=== PATIENT | male | born 1995 | race Asian ===

== ENCOUNTER → 2023-08-01 | Outpatient (CLI) | payer OTHER | END | disposition home or self-care (01) | LOC: LABMN 08:29 | PROVIDERS: ATTEND Chiropractor | DX: M79.89 Other specified soft tissue disorders (principal); M13.80 Other specified arthritis, unspecified site; R07.9 Chest pain, unspecified; M54.9 Dorsalgia, unspecified | CPT/HCPCS: 71046 ==